=== PATIENT | male | born 1960 | race Caucasian/White ===

== ENCOUNTER 2017-10-16 13:45 | Emergency (ER) | payer BC, OTHER ==
[2017-10-16] MEDS ORDERED: Dexamethasone/Tobramycin 0.1-0.3% Ophth Susp 2.5 ML Bottle EYELF SCH (14:15)
--- NOTE | 2017-10-16 14:19 | EDM.PDOC ---
ED HPI GENERAL MEDICAL PROBLEM - General Chief Complaint: Eye Problems Stated Complaint: eye pain Time Seen by Provider: 10/16/17 13:55 Source of Information: Reports: Patient History Limitations: Reports: No Limitations - History of Present Illness INITIAL COMMENTS - FREE TEXT/NARRATIVE: Tio is a 57 year old male who presents to the ED with c/o irritation to his left eye. He reports he was mowing lawn this morning. He thinks maybe he brushed up on a pine tree. He reports his eye gradually became more irritated. He reports a foreign body sensation. Denies any changes in visual acuity. Denies any other issues. Onset: Today Onset Date: 10/16/17 Onset Time: 10:00 Duration: Constant Associated Symptoms: Reports: No Other Symptoms Left Eye Pain Score (Numeric/FACES): 3 - Related Data Allergies Allergy/AdvReac Type Severity Reaction Status Date / Time No Known Allergies Allergy Verified 10/16/17 13:49 Home Meds: Home Meds . [Unable to Verify Home Med List] 10/16/17 [History] Past Medical History HEENT History: Reports: Hard of Hearing, Impaired Vision Cardiovascular History: Reports: High Cholesterol, Hypertension Musculoskeletal History: Reports: Gout Neurological History: Reports: Seizure - Past Surgical History Dermatological Surgical History: Reports: Plastic Surgical Reconstruction/Repair , Skin Graft Social & Family History - Family History Family Medical History: Noncontributory - Tobacco Use Smoking Status *Q: Never Smoker - Caffeine Use Caffeine Use: Reports: Coffee, Tea - Alcohol Use Days Per Week of Alcohol Use: 7 Number of Drinks Per Day: 6 Total Drinks Per Week: 42 - Recreational Drug Use Recreational Drug Use: No ED ROS GENERAL - Review of Systems Review Of Systems: ROS reveals no pertinent complaints other than HPI. ED EXAM GENERAL W FULL EYE - Physical Exam Exam: See Below Exam Limited By: No Limitations General Appearance: Alert, WD/WN, No Apparent Distress Eye Exam: Left Eye: Conjunctival Injection, Bilateral Eye: EOMI, PERRL Visual Acuity (L) 20/: 15 With Correction: Yes Eyelids: Bilateral: Normal Appearance Conjunctiva & Sclera: Left: Injected Cornea Exam: Bilateral: Normal Appearance Extraocular Movements: Bilateral: Intact Pupils: Normal Accommodation Pupillary Size: Bilateral: 3 mm Pupillary Reaction: Bilateral: Brisk Anterior Chamber: Bilateral: Normal Appearance Posterior Chamber: Bilateral: Normal Funduscopic Course - Vital Signs Last Recorded V/S: Last Vital Signs Temp 97.2 F 10/16/17 13:45 Pulse 70 10/16/17 13:45 Resp 20 10/16/17 13:45 BP Pulse Ox 94 L 10/16/17 13:45 - Re-Assessments/Exams Free Text/Narrative Re-Assessment/Exam: Left eye irrigated with sterile water. No foregn body visualized. Departure - Departure Time of Disposition: 14:14 Disposition: Home, Self-Care 01 Condition: Good Clinical Impression: Conjunctivitis Qualifiers: Conjunctivitis type: acute Acute conjunctivitis type: unspecified Laterality: left Qualified Code(s): H10.32 - Unspecified acute conjunctivitis, left eye - Discharge Information Instructions: How to Use Eye Drops and Eye Ointments Additional Instructions: Tobradex drops to left eye Q6 hours x 5 days Avoid rubbing or touching eye Tylenol or ibuprofen as needed for discomfort Follow up if symptoms worsen or do not improve
== END 2017-10-16 14:28 | disposition home or self-care (01) ==
LOC: CC.ED 13:45
DX: H10.32 Unspecified acute conjunctivitis, left eye (principal)
CPT/HCPCS: 99282